=== PATIENT | male | born 1940 | race Caucasian/White ===

== ENCOUNTER → 2018-02-28 | Day surgery (SDC) | payer OTHER ==
[~2018-02-28] VITALS: Ht 170.2 cm; Wt 81.6 kg
[~2018-02-28] MED LIST: AUGMENTIN 875-1 EACH PO; LANSOPRAZOLE30 M2 PO; MELATONIN PO; NASONEX17 GM NASB; NORCO 7.5-3251 EACH PO; XANAX0.5 M1 PO
--- NOTE | 2018-02-28 07:37 | Operative Report ---
Operative/Inv Procedure Report Surgery Date: 02/28/18 Name of Procedure: Left wrist de Quervain's release Pre-Operative Diagnosis: Left wrist de Quervain's tenosynovitis Post-Operative Diagnosis: Left wrist de Quervain's tenosynovitis Estimated Blood Loss: scant Surgeon/Dredge Mate: Patricio Prince MD Anesthesia: TIVA Complications: None Condition: Stable to PACU Operative Indication: This is a 78-year-old male with long-standing left wrist de Quervain's tenosynovitis that has failed conservative care. Risks and benefits of the procedure were discussed with the patient at length. Risks include but are not limited to nerve damage, muscle damage, infection, blood loss, blood clots, pulmonary embolus, and even . The patient agreed to the above risks and elected to proceed with surgery. Operative/Procedure Note Note: The patient was taken to the operating room and placed supine on the operating room table. A tourniquet was applied to the arm above the elbow. The upper extremity was prepped and draped in the normal sterile fashion. The patient received IV antibiotics prior to incision. A time out was performed and the site marking was also visualized prior to incision. An Esmarch was used to exsanguinate the extremity. The tourniquet was inflated. A 2 cm transverse incision was then made one centimeter proximal to the radial styloid. Care was taken to protect superficial branches of the radial nerve. The first dorsal compartment was identified and incised. The retinaculum was then released proximally to the musculotendinous junction of the abductor pollicis longus and extensor pollicis brevis tendons. Any sub-sheaths were identified and released. The retinaculum was also released distally until the tendons were completely released. There were delivered from the wound and noted to be without adhesions. Once the release was complete the wound was copiously irrigated. The incision was closed with 3-0 Prolene suture in a running subcuticular fashion. 0.25% Marcaine was then injected to anesthetize the wound. A dry sterile dressing was applied and the patient was transferred to PACU in stable condition.
== END ==
LOC: STS 01:42
DX: M65.4 Radial styloid tenosynovitis [de Quervain] (principal); C85.90 Non-Hodgkin lymphoma, unspecified, unspecified site; K22.70 Barrett's esophagus without dysplasia
CPT/HCPCS: J0690; J2250; J2405